=== PATIENT | male | born 1980 | race Caucasian/White ===

== ENCOUNTER 2016-10-14 17:38 | Emergency (ER) | payer MEDICAID ==
--- NOTE | 2016-10-15 00:14 | ER ---
ADMIT: 10/14/2016 RM/LOC: ER [facility] MR#: [id number] [place], [place] [id number] TEDYD GOLDMAN [address] [place] [address] Emergency Room Report SEX: M AGE: 36 : 1980 DATE: 10/14/2016 TIME: 1738 hours. Primary care is Dr. Sonny Jefferson M.D. Please refer to my T-sheet for complete H and P. HISTORY OF PRESENT ILLNESS: Briefly, the patient is a 36-year-old who comes in with chest pain. He said it started yesterday. It has been constant and has not gone away. It hurts kind of when he pushes on him or moves, rates it 10/10. He has a known history of some rheumatological illness, he does not know the name of it and he is not in our system; where he takes Humira for. He has never had heart problems. He does not smoke. He has had problems with this in the past. He is here for evaluation. Pain does not radiate, does feel short of breath. PHYSICAL EXAMINATION: VITAL SIGNS: Blood pressure 120/75, pulse 74, respirations 20, temp 97.8, sat 97%. GENERAL: No acute distress. HEENT: Grossly normal. LUNGS: Clear. HEART: Regular. No murmur or rub. ABDOMEN: Soft, nontender, and nondistended. CHEST: Chest wall, he does have reproducible chest wall pain anteriorly. EMERGENCY DEPARTMENT COURSE: EKG was sinus rhythm, rate 84, no changes. Chest x-ray, no acute disease. CBC normal. Chemistries normal except an ALT of 103. UA normal. I gave him Toradol 60 IM. He was improved and ready for discharge. ASSESSMENT: 1. Noncardiac chest pain. 2. History of rheumatological illness. PLAN: Motrin 800 t.i.d. p.r.n. I gave him a script for 30. Followup with Dr. Sonny Jefferson in the next 3-4 days. Return if worse. Rudi Goode MD/ priya JOB #: [id number] CC: Rudi Goode MD, Attending Physician
== END 2016-10-14 19:30 | disposition home or self-care (01) ==
LOC: ER 17:38
DX: R07.89 Other chest pain (principal); F32.9 Major depressive disorder, single episode, unspecified